=== PATIENT | male | born 1950 | race American Indian/Alaskan Native ===

== ENCOUNTER 2018-04-09 11:55 | Emergency (ER) | payer MEDICARE ==
[2018-04-09] MEDS ORDERED: KEPPRA 1,000 MG/NS 0.75% 100ML 1,000 MG/100 ML BAG IV ONE ×3 (12:27→12:29)
[2018-04-09 13:18] LABS: Basophils % (Auto) 0.4 % (0.0-1.8); Eosinophils # (Auto) 0.1 K/mm3 (0.0-0.4); Eosinophils % (Auto) 2.6 % (0.0-4.3); Hematocrit 38.7 % (35.5-45.6); Hemoglobin 12.5 gm/dl (11.8-15.2); Lymphocytes # (Auto) 0.5 K/mm3 (1.2-5.4); Lymphocytes % (Auto) 16.9 % (13.4-35.0); Mean Corpuscular HGB Conc 32 % (32-34); Mean Corpuscular Volume 79 fl (84-94); Monocytes # (Auto) 0.2 K/mm3 (0.0-0.8); Monocytes % (Auto) 8.2 % (0.0-7.3); Platelet Count 155 K/mm3 (140-440); Red Cell Distribution Width 15.3 % (13.2-15.2)
[2018-04-09 13:28] LABS: Partial Thromboplastin Time 29.2 Sec. (24.2-36.6)
[2018-04-09 13:32] LABS: BUN/Creatinine Ratio 10; Blood Urea Nitrogen 7 mg/dL (9-20); Calcium 8.9 mg/dL (8.4-10.2); Creatine Kinase MB 2.1 ng/mL (0.0-4.0); Hemolysis Index 72; Mean Corpuscular Hemoglobin 25 pg (28-32)
[2018-04-09 13:34] LABS: Alanine Aminotransferase 9 units/L (7-56); Albumin 3.6 g/dL (3.9-5)
[2018-04-09 13:37] LABS: Bilirubin,Urine NEG (Negative); Blood,Urine NEG (Negative); Color,Urine Yellow (Yellow); Mucus,Urine FEW /HPF; Protein,Urine <15 mg/dL mg/dL (Negative); Urobilinogen,Urine < 2.0 mg/dL (<2.0); WBC,Urine < 1.0 /HPF (0.0-6.0)
[2018-04-09 13:44] LABS: Amphetamine Screen,Urine PRESUMPTIVE NEGATIVE; Cannabinoid Screen,Urine PRESUMPTIVE NEGATIVE; Cocaine Screen,Urine PRESUMPTIVE NEGATIVE; Methadone Screen,Urine PRESUMPTIVE NEGATIVE; Opiate Screen,Urine PRESUMPTIVE NEGATIVE
[2018-04-09 13:45] LABS: Bilirubin,Direct < 0.2 mg/dL (0-0.2)
[2018-04-09 13:58] LABS: Benzodiazepines Screen,Urine PRESUMPTIVE POSITIVE
--- NOTE | 2018-04-09 14:41 | Emergency Department Report ---
ED General Adult HPI - General Chief complaint: Altered Mental Status Stated complaint: SEIZURE Time Seen by Provider: 04/09/18 12:25 Source: EMS Mode of arrival: Stretcher Limitations: Physical Limitation - History of Present Illness Initial comments: 67-year-old man with a history of prostate cancer comes to the emergency department after a generalized seizure. At the time of telecommunications linesworker arrival the patient was having a generalized seizure. He has no prior history of this. He was brought to the emergency department for further evaluation. He does have a problem list from [facility] with states he has a history of rectal cancer and prostate cancer. He also had a non-traumatic subcortical hemorrhage of the right cerebral hemisphere. He was confused and apparently postictal on arrival. After the patient had his CT he was found to have intracranial hemorrhage. I discussed this with Dr. Clarence Hunt at [facility]. The patient will be transferred to the [facility] ICU. I reexamined the patient after he returned from CT. He has a GCS of 15. He denied any knowledge of prior cancer. However as above he has paperwork from [facility] to the [facility]. He stated that he did know he was at [facility] beds at the [facility]. He stated that he has not been on chronic pain medicine. However his records indicate that he was on morphine and fentanyl while he was at [facility] during this February 2018 admission. In any case patient is remarkably alert and not complaining of headache. He is stable for transfer. I did not find him to have any focal deficits. His NIH stroke score was 0. Severity scale (0 -10): 0 - Related Data Allergies Allergy/AdvReac Type Severity Reaction Status Date / Time No Known Allergies Allergy Unverified 04/09/18 12:16 ED Review of Systems ROS: Stated complaint: SEIZURE Other details as noted in HPI Comment: Unobtainable due to pts medical conditions ED Past Medical Hx - Past Medical History Previous Medical History?: Yes Additional medical history: prostate ca, see see HPI - Social History Smoking Status: Unknown if ever smoked Substance Use Type: Other (unknown) ED Physical Exam - General Limitations: Altered Mental Status, Physical Limitation General appearance: in no apparent distress, lethargic - Head Head exam: Present: atraumatic, normocephalic - Eye Eye exam: Present: normal appearance, PERRL, EOMI. Absent: scleral icterus - ENT ENT exam: Present: normal exam, mucous membranes moist - Neck Neck exam: Present: normal inspection. Absent: tenderness, meningismus - Respiratory Respiratory exam: Present: normal lung sounds bilaterally. Absent: respiratory distress - Cardiovascular Cardiovascular Exam: Present: regular rate, normal rhythm. Absent: systolic murmur, diastolic murmur, rubs, gallop - GI/Abdominal GI/Abdominal exam: Present: soft, normal bowel sounds. Absent: distended, tenderness, guarding, rebound, rigid - Rectal Rectal exam: Present: deferred - Extremities Exam Extremities exam: Present: normal inspection - Back Exam Back exam: Present: normal inspection - Neurological Exam Neurological exam: Present: altered (consistent with postictus), CN II-XII intact (as testable). Absent: motor sensory deficit - Psychiatric Psychiatric exam: Present: normal mood, flat affect - Skin Skin exam: Present: warm, dry, intact, normal color. Absent: rash ED Course Vital Signs 04/09/18 04/09/18 12:49 12:53 Temperature 98.3 F Pulse Rate 68 Respiratory 17 17 Rate Blood Pressure 160/93 [Right] O2 Sat by Pulse 100 100 Oximetry - Reevaluation(s) Reevaluation #1: Patient's mental status improved. He is been accepted at [facility] for transfer. He was given Keppra shortly after arrival. He remains in stable condition. 04/09/18 15:47 ED Medical Decision Making - Lab Data Result diagrams: 04/09/18 12:45 04/09/18 12:45 Laboratory Results - last 24 hr 04/09/18 04/09/18 04/09/18 12:45 12:45 12:45 WBC 3.0 L RBC 4.90 Hgb 12.5 Hct 38.7 MCV 79 L MCH 25 L MCHC 32 RDW 15.3 H Plt Count 155 Lymph % (Auto) 16.9 [place] % (Auto) 8.2 H Eos % (Auto) 2.6 Baso % (Auto) 0.4 Lymph # 0.5 L [place] # 0.2 Eos # 0.1 Baso # 0.0 Seg Neutrophils % 71.9 H Seg Neutrophils # 2.2 PT 13.7 INR 1.00 APTT 29.2 Thrombin Time Sodium 136 L Potassium 4.5 Chloride 101.9 Carbon Dioxide 28 Anion Gap 11 BUN 7 L Creatinine 0.7 L Estimated GFR > 60 BUN/Creatinine Ratio 10 Glucose 99 Lactic Acid Calcium 8.9 Magnesium Total Bilirubin Direct Bilirubin AST ALT Alkaline Phosphatase Ammonia Total Creatine Kinase CK-MB (CK-2) CK-MB (CK-2) Rel Index Troponin T < 0.010 NT-Pro-B Natriuret Pep Total Protein Albumin Albumin/Globulin Ratio Urine Bilirubin Urine RBC (Auto) Urine Opiates Screen Urine Methadone Screen Ur Barbiturates Screen Ur Phencyclidine Scrn Ur Amphetamines Screen Urine Cocaine Screen U Marijuana (THC) Screen 04/09/18 04/09/18 04/09/18 12:45 12:45 12:45 WBC RBC Hgb Hct MCV MCH MCHC RDW Plt Count Lymph % (Auto) [place] % (Auto) Eos % (Auto) Baso % (Auto) Lymph # [place] # Eos # Baso # Seg Neutrophils % Seg Neutrophils # PT INR APTT Thrombin Time 15.1 Sodium Potassium Chloride Carbon Dioxide Anion Gap BUN Creatinine Estimated GFR BUN/Creatinine Ratio Glucose Lactic Acid 1.20 Calcium Magnesium 1.90 Total Bilirubin 0.40 Direct Bilirubin < 0.2 AST 15 ALT 9 Alkaline Phosphatase 51 Ammonia Total Creatine Kinase 105 CK-MB (CK-2) 2.1 CK-MB (CK-2) Rel Index 2.0 Troponin T NT-Pro-B Natriuret Pep 54.52 Total Protein 6.8 Albumin 3.6 L Albumin/Globulin Ratio 1.1 Urine Bilirubin Urine RBC (Auto) Urine Opiates Screen Urine Methadone Screen Ur Barbiturates Screen Ur Phencyclidine Scrn Ur Amphetamines Screen Urine Cocaine Screen U Marijuana (THC) Screen 04/09/18 04/09/18 04/09/18 12:45 13:22 13:22 WBC RBC Hgb Hct MCV MCH MCHC RDW Plt Count Lymph % (Auto) [place] % (Auto) Eos % (Auto) Baso % (Auto) Lymph # [place] # Eos # Baso # Seg Neutrophils % Seg Neutrophils # PT INR APTT Thrombin Time Sodium Potassium Chloride Carbon Dioxide Anion Gap BUN Creatinine Estimated GFR BUN/Creatinine Ratio Glucose Lactic Acid Calcium Magnesium Total Bilirubin Direct Bilirubin AST ALT Alkaline Phosphatase Ammonia 21.0 L Total Creatine Kinase CK-MB (CK-2) CK-MB (CK-2) Rel Index Troponin T NT-Pro-B Natriuret Pep Total Protein Albumin Albumin/Globulin Ratio Urine Bilirubin Neg Urine RBC (Auto) 4.0 Urine Opiates Screen Presumptive negative Urine Methadone Screen Presumptive negative Ur Barbiturates Screen Presumptive negative Ur Phencyclidine Scrn Presumptive negative Ur Amphetamines Screen Presumptive negative Urine Cocaine Screen Presumptive negative U Marijuana (THC) Screen Presumptive negative - EKG Data -: EKG Interpreted by Me EKG shows normal: sinus rhythm, axis, intervals, QRS complexes, ST-T waves Rate: normal - EKG Data Interpretation: no acute changes, other (J-point elevation. Does suggest LVH.) - Radiology Data interpreted by me: There is a 3 cm left frontal hemorrhage which to me looks a bit subacute with some edema. There is also a smaller right occipital hemorrhage. There is no midline shift. Chest x-ray shows no acute process. Critical Care Time: Yes Critical care time in (mins) excluding proc time.: 60 Critical care attestation.: If time is entered above; I have spent that time in minutes in the direct care of this critically ill patient, excluding procedure time. ED Disposition Clinical Impression: Intracranial hemorrhage, Generalized seizure, Prostate cancer metastatic to multiple sites, History of rectal cancer Disposition: 09 OP ADMIT IP TO THIS HOSP Is pt being admited?: Yes Does the pt Need Aspirin: No Condition: Stable Referrals: PRIMARY CARE, [Primary Care Provider] - 3-5 Days Time of Disposition: 15:51
--- NOTE | 2018-04-09 16:32 | Cat Scan Report ---
FINAL REPORT EXAM: CT HEAD WO CONTRAST HISTORY: ams / stroke TECHNIQUE: Noncontrast CT axial images of the brain. PRIORS: None. FINDINGS: Heterogeneous, hyperdense or hemorrhagic focus in left paramedian frontal region measuring approximately 3 x 2 cm, with some associated, possible vasogenic edema. Small subarachnoid hemorrhagic component also in left frontal region. Mild mass effect, including partial effacement left lateral ventricle frontal horn and approximately 4 mm left to right midline shift of anterior falx. Tiny, hyperdensity also in the right occipital cortex measuring approximately 4 mm may also represent hemorrhagic focus. No obvious parenchymal mass or hydrocephalus. No evidence of acute cortical infarct. No other abnormal, extra-axial fluid or air collection. Mild, patchy low density in the periventricular and subcortical white matter is nonspecific, but may relate to chronic small vessel ischemic change. Age-related volume loss. Osseous calvarium grossly intact. IMPRESSION: 1. Parenchymal hemorrhage or hematoma and small subarachnoid hemorrhagic component in the left paramedian frontal region, with associated vasogenic edema and mild mass effect, as reported. Probable additional, tiny hemorrhagic focus also in the right occipital region raising concern for hemorrhagic, metastatic disease. Clinical correlation and followup suggested. 2. Chronic ischemic and atrophic changes. Dr. Chen discussed results with Dr. Moore on 09 Apr 2018 at approximately 1444 hours EST.
[2018-04-09 16:48] VITALS: BP 165/83
== END 2018-04-09 16:48 | disposition other institution (70) ==
LOC: ED 11:55
DX: I62.9 Nontraumatic intracranial hemorrhage, unspecified (principal); R56.9 Unspecified convulsions; Z85.048 Personal history of other malignant neoplasm of rectum, rectosigmoid junction, and anus; Z85.46 Personal history of malignant neoplasm of prostate
CPT/HCPCS: 36415; 70450; 71045; 80048; 80074; 80307; 81001; 82140; 82550; 82553; 83735; 83880; 84484; 85025; 85610; 85670; 85730; 87040; 87086; 93005; 93010; 96365; 99291; J1953